=== PATIENT | male | born 1985 | race Caucasian/White ===

== ENCOUNTER 2021-05-19 19:57 | Emergency (ER) | payer MEDICAID ==
[~2021-05-19] VITALS: Ht 180.3 cm; Wt 75.5 kg
--- OUTSIDE RECORDS SUMMARY | 2021-05-19 21:18 | XMS ---
PreManage Notification: GINO BRYANT Security Attending Ambulatory Care Events No recent Security Events currently on file CRITERIA MET - [facility] CARE PROVIDERS YOSSI BAEZ Internal Medicine: Infectious Disease 07/27/2020-Maggy DRAKE PHONE: Unknown NEHA MARRERO [facility] Current PHONE: [phone] JANELLE HARVEY Registered Nurse: Case Management 12/06/2020-Current PHONE: Unknown Guidelines Source: Consistent Care Guidelines Date: 12/03/2020 Care Recommendation: This patient is case managed through the ED diversion program by [facility]. Please call at or for additional information. Primary Care Provider (PCP) is Neha Marrero MD [phone]. Established care with provider 04/11. - Notify PCP if giving any additional narcotics for objective findings. \T\nbsp; Infectious Disease Provider is Dr. Guillen with [facility] at [phone]. Medical/ Surgical History: -Sepsis x2 in Mar 2020 with admission to [facility] -+MRSA -Hx of cellulitis infections r/t IVDU -Measles at the age of 4 -Chronic Hep C: Dx 03/2020: Enrolled in [employer] 8wk Tx program w/[employer] Infectious Disease Problem List: -[facility] nurses line: . Please encourage patient to utilize this resource as needed. -Possible unmet behavioral health needs: not interested in services at this time. -LUCI \T\ndash; needs and LUCI assessment. Need to assess readiness to change.\T\ nbsp; -Pt states he has a good handle on things at this time. -Most ED visits are r/t cellulitis infections requiring medical interventions. Behavioral Health: -ADHD Substance Use: -Methamphetamines: smokes and IVDU -Went to treatment in [facility] -Everyday tobacco user -Cigarettes and chewing tobacco Social Needs/History: -Has 2 children ages 18 and 12 -Unemployed, worked for [employer] for 13 years -Lives with parents in [place], states he has a good support system Additional Information: Please do not give this Care Guideline to the patient. This document is for provider and staff use only. The following guidelines were written by [facility] and coincide with enrollment in the ED diversion program on . This guideline provides information that is detailed and individualized for each patient placed in our program. E.D. VISIT COUNT (12 MO.) 1 Lalita Glez [address] [facility] ED [address] [facility] TOTAL 4 NOTE: Visits indicate total known visits. ED/UCC VISIT TRACKING (12 MO.) 05/19/2021 19:59 MONI [place] TYPE: Emergency COMPLAINT: - SKIN PROBLEM 12/04/2020 16:45 Kathleen TOTH TYPE: Emergency COMPLAINT: - BUMP ON STOMACH DIAGNOSES: - Cutaneous abscess of abdominal wall 12/03/2020 00:01 Lalita ChristiansenPhilip [place] TYPE: Emergency COMPLAINT: - Overdose, possible - NAUSEA WITH VOMITING UNSPECIFIED - POISON HEROIN ACCIDENTAL INIT ENC DIAGNOSES: 0. Poisoning by heroin, accidental (unintentional), initial encounter 1. Poisoning by heroin, accidental (unintentional), initial encounter 4. Contusion of left front wall of thorax, initial encounter 5. Exposure to other specified factors, initial encounter 6. Other psychoactive substance abuse, uncomplicated 07/25/2020 15:23 [facility] [place] TYPE: Emergency DIAGNOSES: - insect bite - Cutaneous abscess of left lower limb - Skin Problem INPATIENT VISIT TRACKING (12 MO.) No inpatient visits to display in this time frame [email or web address]
[2021-05-19] MEDS ORDERED: HYDROCODON-ACE1 EA10 PO (21:20)
[2021-05-19] MEDS ORDERED: DOXYCYCLINE HY100 MG PO (21:20)
== END 2021-05-19 21:39 | disposition home or self-care (01) ==
LOC: ED 19:57
DX: L02.416 Cutaneous abscess of left lower limb (principal)
CPT/HCPCS: 10060; 87070; 87077; 87205; 99283-25